=== PATIENT | female | born 1950 | race Caucasian/White ===

== ENCOUNTER → 2017-06-05 | Outpatient (CLI) | payer BC ==
[~2017-06-05] MED LIST: ONDANSETRON 4 MG/2 ML VIAL ONE
[2017-06-05 10:32] LABS: Basophils # (A) 0.1 k/uL (0-0.2); Basophils % (A) 1 %; Eosinophils # (A) 0.2 k/uL (0-0.7); Eosinophils % (A) 2 %; HCT 45.7 % (34.0-46.0); HGB 15.6 gm/dL (11.4-16.0); Lymphocytes # (A) 2.1 k/uL (1.0-4.8); Lymphocytes % (A) 26 %; MCH 30.3 pg (25.0-35.0); MCHC 34.3 g/dL (31.0-37.0); MCV 88.4 fL (80.0-100.0); Mean Platelet Volume 6.7; Monocytes # (A) 0.3 k/uL (0-1.0); Monocytes % (A) 4 %; Neutrophils # (A) 5.5 k/uL (1.3-7.7); Neutrophils % (A) 66 %; Platelet Count 262 k/uL (150-450); RBC 5.17 m/uL (3.80-5.40); RDW 12.6 % (11.5-15.5); WBC 8.3 k/uL (3.8-10.6)
== END | disposition home or self-care (01) ==
LOC: LABPAT 09:16
PROVIDERS: ATTEND Obstetrics & Gynecology
DX: Z01.818 Encounter for other preprocedural examination (principal); Z01.812 Encounter for preprocedural laboratory examination
CPT/HCPCS: 36415; 85025; 93005

== ENCOUNTER 2017-06-07 05:41 | Day surgery (SDC) | payer BC ==
[2017-06-05 15:14] VITALS: BMI 28.3
--- NOTE | 2017-06-06 13:04 | P.HPOB ---
History of Present Illness H&P Date: 06/06/17 Chief Complaint: Postmenopausal bleeding. This patient is a pleasant 67 yr female who has had postmenopausal bleeding for approximately 3 weeks. Pelvis ultrasound showed abnormal endometrial thickening to 2.4 cm and large uterine fibroid. Previously she did have a benign cervical polyp (Dec) and normal pap. She now presents for further evaluation/treatment. Review of Systems Genitourinary: Reports as per HPI, Reports abnormal vaginal bleeding Menstruation: Reports postmenopausal Past Medical History Past Medical History: Hypertension Additional Past Medical History / Comment(s): post menopausal bleeding History of Any Multi-Drug Resistant Organisms: None Reported Past Surgical History: No Surgical Hx Reported Past Anesthesia/Blood Transfusion Reactions: No Reported Reaction Additional Past Anesthesia/Blood Transfusion Reaction / Comment(s): no surgery or anesthesia Past Psychological History: No Psychological Hx Reported Smoking Status: Never smoker Past Alcohol Use History: None Reported Past Drug Use History: None Reported - Past Family History Mother Family Medical History: No Reported History Medications and Allergies Home Medications Medication Instructions Recorded Confirmed Type Enalapril [Vasotec] 10 mg PO BID 01/04/15 06/05/17 History Hydrochlorothiazide [Hydrodiuril] 12.5 mg PO DAILY 01/04/15 06/05/17 History Ergocalciferol (Vitamin D2) 50,000 unit PO Q4D 06/05/17 06/05/17 History [Vitamin D2] Allergies Allergy/AdvReac Type Severity Reaction Status Date / Time Penicillins Allergy Rash/Hives Verified 06/05/17 15:05 Exam - Vital Signs Vital signs: Intake and Output 06/05/17 06/06/17 06/06/17 22:59 06:59 14:59 Other: Weight 82.1 kg - OBG Physical Exam Abdomen: bowel sounds normal, no diffuse tenderness, no bruit present, no guarding noted, no hepatomegaly, no splenomegaly, no mass Vulva: both: normal Vagina: atrophic mucosa Cervix: no lesion, no discharge Uterus: enlarged (Pt has uterine prolapse to the introitus with valsalva) Results Transvaginal ultrasound on May 28 showed abnormal endometrial thickening to 2.4cm and 5.7 cm uterine fibroid. Assessment and Plan Assessment: This is a pleasant 67 yr female with new onset postmenopausal bleeding. Plan is hysteroscopy and D&C for further evaluation and treatment. Jeny and I have discussed this surgery and risks: infection, bleeding, possible uterine perforation. All of the patients questions were answered and a written consent obtained. (1) Postmenopausal bleeding Status: Acute Code(s): N95.0 - POSTMENOPAUSAL BLEEDING SNOMED Code(s): 37329865
[~2017-06-07 05:41] MED LIST changes: -ONDANSETRON 4 MG/2 ML VIAL ONE; +Pre Op ABX Message 1 EACH MISC MISCELLANE ONE
[2017-06-07] MEDS ORDERED: MORPHINE SULFATE 4 MG/0.8 ML SYRINGE (INJ) IV PRN (05:48)
[2017-06-07] MEDS ORDERED: LIDOCAINE 1% 20 ML VIAL (10MG/ML) FOR IV START INTRADERMA PRN (05:48)
[2017-06-07] MEDS ORDERED: SCOPOLAMINE 1.5MG/72HR PATCH TRANSDERM ONE (05:48)
[2017-06-07] MEDS ORDERED: MIDAZOLAM 2 MG/2 ML VIAL IV PRN (05:48)
[2017-06-07] MEDS ORDERED: ONDANSETRON ODT 4 MG TAB PO ONE (05:48)
[2017-06-07] MEDS ORDERED: LACTATED RINGERS 1,000 ML IV SCH (05:48)
[2017-06-07] MEDS ORDERED: DEXAMETHASONE SOD PHOSPHATE 10 MG/ML 1 ML VIAL IV ONE (05:48)
[2017-06-07] MEDS ORDERED: ONDANSETRON 4 MG/2 ML VIAL IVP ONE (06:40)
[2017-06-07] MEDS ORDERED: LIDOCAINE 1% INJ 10MG/ML (20 ML MDV) ONE (06:56)
[2017-06-07] MEDS ORDERED: PROPOFOL 10 MG/ML 20 ML VIAL IV ONE (06:56)
[2017-06-07] MEDS ORDERED: KETOROLAC 30 MG/ML 1 ML VIAL ONE (06:56)
[2017-06-07] MEDS ORDERED: SUCCINYLCHOLINE CHLORIDE 100 MG/5 ML SYR IV ONE (06:56)
[2017-06-07] MEDS ORDERED: PHENYLEPHRINE-0.9% NACL SYG 1 MG/10 ML SYRINGE ONE (06:56)
--- NOTE | 2017-06-07 07:32 | P.OP ---
Date of Procedure: 06/07/17 Preoperative Diagnosis: Post menopausal bleeding Postoperative Diagnosis: Same Procedure(s) Performed: #1: Hysteroscopy. #2: Dilation and curettage Anesthesia: BERNIE Surgeon: Zaid Nunez Estimated Blood Loss (ml): 20 Urine output (ml): 20 Pathology: other (Endometrial polyp and uterine curettings) Condition: stable Disposition: PACU Indications for Procedure: Please see dictated H&P for intimate details of this patient's admission. In brief summary this is a pleasant 67-year-old female whose had approximately 3+ weeks of postmenopausal bleeding. Pelvic ultrasound showed abnormal endometrial thickening to 2.4 cm. She now presents for hysteroscopy D&C for further evaluation and treatment. Patient understands this surgery and risks including risks of infection, bleeding, possible uterine perforation. All the patient's questions are answered written consent is obtained. Operative Findings: This patient had a approximately 4-5 cm elongated endometrial polyp that was protruding from the cervix. She also had multiple intrauterine polyps as well. Description of Procedure: This patient is taken to the operating room where she is laid in the supine position. She subsequently undergoes general endotracheal anesthesia without incident. With an adequate level of anesthesia she's placed in the dorsal lithotomy position. She has a vaginal perineal prep and drape. Examination under anesthesia shows her uterus to be protruding to the introitus consistent with her known prolapse. There is a large polyp that was protruding from the cervix. Place a weighted speculum posterior vagina. Bladder is drained for 20 mL of clear urine. Grabbed the anterior lip of the cervix with an Allis clamp. Using a ring forceps I grabbed the protruding endometrial polyp and in a twisting motion remove this polyp it is approximately 4-5 cm in length and 1-2 cm in width. With this done of the cervix is already dilated but I placed the hysteroscope easily and the uterine cavity. Hysteroscopy is performed and there appeared to be multiple other polyps. The hysteroscope was then removed. Cervix is a very dilated enough to allow a polyp forceps easily uterine cavity and again multiple polyps removed with the polyp forceps and the Ivy forceps. This done a large curette is easily placed in the uterine cavity and a gentle but thorough 4 quadrant curettage is done for more tissue and polyps. None of this tissue appears concerning for carcinoma but there are multiple polyps. This point with adequate sampling done and all the polyps removed as possible procedure is ended. The hemostasis is assured. The Allis clamp and weighted speculum was removed. All counts are correct 3. There are no complications. Patient is awakened from anesthesia and taken recovery room satisfactory condition.
[2017-06-07 07:38] VITALS: TEMP 96.8
[2017-06-07] MEDS ORDERED: LACTATED RINGERS 1,000 ML IV ONE (08:06)
[2017-06-07] MEDS ORDERED: Acetaminophen-Codeine 300-30mg TAB PO ONE (08:30)
[2017-06-07 08:36] VITALS: RESP 16
[2017-06-07 08:46] VITALS: BP 128/78; PULSE 74
== END 2017-06-07 09:05 | disposition home or self-care (01) ==
LOC: OR 05:41
PROVIDERS: ATTEND Obstetrics & Gynecology
DX: N84.0 Polyp of corpus uteri (principal); N84.1 Polyp of cervix uteri; N71.1 Chronic inflammatory disease of uterus; I10 Essential (primary) hypertension; K21.9 Gastro-esophageal reflux disease without esophagitis; Z88.0 Allergy status to penicillin; Z88.2 Allergy status to sulfonamides; Z79.1 Long term (current) use of non-steroidal anti-inflammatories (NSAID); Z79.899 Other long term (current) drug therapy
CPT/HCPCS: 88305; 58558; J2250; J1100; J2405; J2001; J1885; J2370; J0330; J2704

== ENCOUNTER → 2018-09-16 | Outpatient (CLI) | payer MEDICARE, BC ==
--- NOTE | 2018-09-16 11:33 | US ---
EXAMINATION TYPE: US transvaginal DATE OF EXAM: 09/16/2018 COMPARISON: CT dated 01/04/2015 CLINICAL HISTORY: N95.0 Post menopausal bleeding. Pt states endometrial polyp removed 1 year ago, pt on Progesterone TECHNIQUE: Transvaginal (TV). Transvaginal sonographic images of the pelvis were acquired. Pt denie s vaginal bleeding EXAM MEASUREMENTS: Uterus: 14.5 x 7.6 x 8.0 cm Endometrial Stripe: 2.1 cm 1. Uterus: Retroverted Heterogeneous with probable leiomyoma posteriorly in the upper uterine segmen t displacing the endometrium. This measures 5.0 x 4.2 x 5.2 cm. 2. Endometrium: Thickened, heterogeneous 3. Right Ovary: Obscured by overlying bowel gas 4. Left Ovary: Obscured by overlying bowel gas 5. Bilateral Adnexa: wnl 6. Posterior cul-de-sac: wnl IMPRESSION: 1. Grossly abnormal and thickened endometrium measuring up to 2.1 cm. Direct visualization and sampli ng are recommended. 2. Heterogenous uterus containing a 5.2 cm intramural mass with mass effect on the endometrium, most commonly a uterine leiomyoma. 3. Obscuration of the ovaries by bowel gas. The 2 cm cystic lesion in the right ovary is therefore no t seen.
== END | disposition home or self-care (01) ==
LOC: RADUSWWP 10:55
PROVIDERS: ATTEND Obstetrics & Gynecology
DX: N85.9 Noninflammatory disorder of uterus, unspecified (principal); R93.89 Abnormal findings on diagnostic imaging of other specified body structures
CPT/HCPCS: 76830

== ENCOUNTER → 2018-09-25 | Outpatient (CLI) | payer MEDICARE, BC ==
[2018-09-25 10:32] LABS: Basophils # (A) 0.1 k/uL (0-0.2); Basophils % (A) 1 %; Eosinophils # (A) 0.3 k/uL (0-0.7); Eosinophils % (A) 4 %; HCT 44.9 % (34.0-46.0); HGB 14.6 gm/dL (11.4-16.0); Lymphocytes # (A) 2.5 k/uL (1.0-4.8); Lymphocytes % (A) 30 %; MCH 29.4 pg (25.0-35.0); MCHC 32.4 g/dL (31.0-37.0); MCV 90.5 fL (80.0-100.0); Mean Platelet Volume 7.5; Monocytes # (A) 0.4 k/uL (0-1.0); Monocytes % (A) 5 %; Neutrophils # (A) 4.8 k/uL (1.3-7.7); Neutrophils % (A) 59 %; Platelet Count 238 k/uL (150-450); RBC 4.96 m/uL (3.80-5.40); RDW 15.2 % (11.5-15.5)
== END | disposition home or self-care (01) ==
LOC: LABPAT 09:41
PROVIDERS: ATTEND Obstetrics & Gynecology
DX: Z01.812 Encounter for preprocedural laboratory examination (principal); Z01.818 Encounter for other preprocedural examination
CPT/HCPCS: 85025; 93005

== ENCOUNTER 2018-10-11 06:22 | Day surgery (SDC) | payer MEDICARE, BC ==
[2018-10-04 09:57] VITALS: BMI 27.8
--- NOTE | 2018-10-10 12:25 | P.HPOB ---
History of Present Illness H&P Date: 10/10/18 Chief Complaint: Endometrial thickening on ultrasound. This patient is a pleasant 68 yr female whose past history is significant for endometrial hyperplasia without atypia on a polyp found in May 2017. She subsequently went on Provera and repeat endometrial sampling was negative, but now a followup ultrasound shows the endometrium to bew 2.1 cm. She has not had any bleeding. She presents for hysteroscopy and D&C to further evaluate Review of Systems All systems: negative Past Medical History Past Medical History: Hyperlipidemia, Hypertension Additional Past Medical History / Comment(s): History of endometrial polyps History of Any Multi-Drug Resistant Organisms: None Reported Additional Past Surgical History / Comment(s): D&C. Past Anesthesia/Blood Transfusion Reactions: No Reported Reaction Additional Past Anesthesia/Blood Transfusion Reaction / Comment(s): no surgery or anesthesia Past Psychological History: No Psychological Hx Reported Smoking Status: Never smoker Past Alcohol Use History: None Reported Past Drug Use History: None Reported - Past Family History Mother Family Medical History: No Reported History Medications and Allergies Home Medications Medication Instructions Recorded Confirmed Type Enalapril [Vasotec] 40 mg PO QAM 10/04/18 10/04/18 History medroxyPROGESTERone [Provera] 5 mg PO QAM 10/04/18 10/04/18 History Allergies Allergy/AdvReac Type Severity Reaction Status Date / Time Penicillins Allergy Rash/Hives Verified 10/04/18 09:48 Sulfa (Sulfonamide AdvReac Unknown Verified 10/04/18 09:48 Antibiotics) Exam - OBG Physical Exam Abdomen: bowel sounds normal Vulva: both: normal, atrophy Vagina: atrophic mucosa Cervix: no lesion, no discharge Uterus: normal size Results Ultrasound shows endometrial thickening to 2.1 cm. Assessment and Plan Assessment: This is a pleasant 68 yr female with a history of endometrial polyps and hyperplasia, s/p Provera therapy and negative sampling but now with a surveillance ultrasound showing endometrial thickening to 2.1 cm. I suspect a recurrent polyp, but have advised a hysteroscopy and D&C for evaluation. I have discussed this surgery in detail including the risks: infection, bleeding, possible uterine perforation. All of the patients questions have been answered and a written consent obtained. (1) Endometrial thickening on ultrasound Status: Acute Code(s): R93.89 - ABNORMAL FINDINGS ON DX IMAGING OF OTH BODY STRUCTURES SNOMED Code(s): 733410899
[~2018-10-11 06:22] MED LIST changes: +DEXAMETHASONE SOD PHOSPHATE 10 MG/ML 1 ML VIAL IV ONE; +HYDROmorphone 0.5 MG/0.5 ML SYRINGE IVP PRN; +LIDOCAINE 1% 20 ML VIAL (10MG/ML) FOR IV START INTRADERMA PRN; +MIDAZOLAM 2 MG/2 ML VIAL IV PRN; +ONDANSETRON 4 MG/2 ML VIAL IVP ONE; +SCOPOLAMINE 1.5MG/72HR PATCH TRANSDERM ONE
[2018-10-11 06:48] VITALS: RESP 16
[2018-10-11] MEDS: LACTATED RINGERS 1,000 ML IV SCH ×2 (06:48→09:20)
[2018-10-11] MEDS ORDERED: LIDOCAINE 1% INJ 10MG/ML (20 ML MDV) ONE (07:19)
[2018-10-11] MEDS ORDERED: fentaNYL (PF) 50 MCG/ML 2 ML AMP ONE (07:19)
[2018-10-11] MEDS ORDERED: MIDAZOLAM 2 MG/2 ML VIAL ONE (07:19)
[2018-10-11] MEDS ORDERED: PROPOFOL 10 MG/ML 20 ML VIAL IV ONE (07:19)
[2018-10-11 07:51] VITALS: TEMP 97
--- NOTE | 2018-10-11 07:54 | P.OP ---
Date of Procedure: 10/11/18 Preoperative Diagnosis: Abnormal endometrial thickening on ultrasound Postoperative Diagnosis: Same Procedure(s) Performed: #1: Hysteroscopy. #2: Dilation and curettage with polypectomy Anesthesia: MAC Surgeon: Zaid Nunez Estimated Blood Loss (ml): 10 Urine output (ml): 15 Pathology: other (Uterine polyps and uterine curettings) Condition: stable Disposition: PACU Indications for Procedure: Please see dictated H&P for intimate details of this patient's admission. Brief summary this is a pleasant 68-year-old female with known history of endometrial polyps and postmenopausal bleeding in the past. Patient had a D&C done in May of last year which showed some benign endometrial polyps but they were hyperplastic. Patient was placed on Provera and had repeat endometrial sampling which was normal. I did do a surveillance ultrasound however that showed endometrial thickening to 2.1 cm. Patient now presents for further evaluation by hysteroscopy D&C. She and I discussed the surgery and risks: Risks of infection, bleeding, possible uterine perforation. All the patient's questions are answered written consent is obtained. Operative Findings: This patient had several large polyps approximately 1-2 cm in the endometrial cavity. Description of Procedure: This patient is taken to the operating room where she is laid in the supine position. She subsequently undergoes general mask anesthesia without incident. With an adequate level of anesthesia she's placed in dorsal lithotomy position. She has a vaginal perineal prep and drape. Examination under anesthesia shows uterine prolapse to the introitus. The anterior lip of the cervix is gravid and Allis clamp and weighted speculum placed posteriorly. I drain the bladder for 15 mL of clear urine. Uterus is sounded to 9 cm. Gentle dilation is done of the endocervix to allow the hysteroscope into the uterine cavity. Using saline solution the uterine cavity is completely visualized and there are 2 large benign appearing polyps. Hysteroscope was then removed. Using a polyp forceps are remove these polyps. I did do a vigorous and thorough 4 quadrant curettage. All this tissue sent off to pathology. There is minimal bleeding. This point the procedure is ended. Allis clamp and weighted speculum removed. All counts are correct 3. There are no complications. Patient is awakened from anesthesia and taken recovery room in satisfactory condition.
[2018-10-11] MEDS ORDERED: KETOROLAC 30 MG/ML 1 ML VIAL IVP ONE (08:25)
[2018-10-11] MEDS ORDERED: HYDROmorphone 1 MG/ML 1 ML SYRINGE IVP ONE (08:27)
[2018-10-11] MEDS ORDERED: ENALAPRILAT 1.25 MG/ML 1 ML VIAL IVP ONE (09:20)
[2018-10-11 09:40] VITALS: BP 152/88; PULSE 78
== END 2018-10-11 09:50 | disposition home or self-care (01) ==
LOC: OR 06:22
PROVIDERS: ATTEND Obstetrics & Gynecology
DX: N84.0 Polyp of corpus uteri (principal); N84.1 Polyp of cervix uteri; N95.0 Postmenopausal bleeding; I10 Essential (primary) hypertension; E78.5 Hyperlipidemia, unspecified; K21.9 Gastro-esophageal reflux disease without esophagitis; Z88.0 Allergy status to penicillin; Z88.2 Allergy status to sulfonamides; Z79.890 Hormone replacement therapy; Z79.899 Other long term (current) drug therapy; Z87.42 Personal history of other diseases of the female genital tract; Z98.890 Other specified postprocedural states
CPT/HCPCS: 58558; 88305; J2250; J1100; J2405; J2001; J3010; J1885; J1170; J2704

== ENCOUNTER → 2018-11-21 | Outpatient (CLI) | payer MEDICARE, BC ==
[2018-11-21 17:45] LABS: African American GFR (CKD) 87.8 (60.0-200.0); Albumin 4.4 g/dL (3.80-4.90); Albumin/Globulin Ratio 2.59 (1.60-3.17); Anion Gap 11.9 mmol/L (4.00-12.00); BUN/Creat Ratio 17.5 Ratio (12.00-20.00); Calcium 9.2 mg/dL (8.7-10.3); Carbon Dioxide 22.1 mmol/L (21.6-31.8); Chol/HDL Ratio 5.73; Globulin 1.7 g/dL (1.6-3.3); LDL Cholesterol,Calculated 148.8 mg/dL (0.0-131.0); Total Bilirubin 0.8 mg/dL (0.2-1.2); Total Protein 6.1 g/dL (6.2-8.2); VLDL Calculation 40.2 mg/dL (5.00-40.00)
== END | disposition home or self-care (01) ==
LOC: LABWHC1 09:45
DX: I10 Essential (primary) hypertension (principal); E78.5 Hyperlipidemia, unspecified; E55.9 Vitamin D deficiency, unspecified
CPT/HCPCS: 36415; 80053; 80061; 82306; 84443

== ENCOUNTER → 2019-11-28 | Outpatient (CLI) | payer MEDICARE, BC ==
--- NOTE | 2019-11-28 17:02 | US ---
EXAMINATION TYPE: US carotid duplex BILAT DATE OF EXAM: 11/28/2019 COMPARISON: NONE CLINICAL HISTORY: R09.89 Carotid bruit. EXAM MEASUREMENTS: RIGHT: Peak Systolic Velocity (PSV) cm/sec ----- Right CCA: 80.9 ----- Right ICA: 101.8 ----- Right ECA: 133.4 ICA/CCA ratio: 1.3 RIGHT: End Diastole cm/sec ----- Right CCA: 28.1 ----- Right ICA: 32.5 ----- Right ECA: 25.2 LEFT: Peak Systolic Velocity (PSV) cm/sec ----- Left CCA: 101.8 ----- Left ICA: 94.1 ----- Left ECA: 82.0 ICA/CCA ratio: 0.9 LEFT: End Diastole cm/sec ----- Left CCA: 34.7 ----- Left ICA: 36.9 ----- Left ECA: 16.0 VERTEBRALS (direction of flow): Right Vertebral: Antegrade Left Vertebral: Antegrade Rhythm: Normal No significant stenosis seen. Soft plaque noted at bilateral bulbs. IMPRESSION: 1. Atherosclerotic plaque with no significant hemodynamic stenosis. Criteria for Assigning % of Stenosis / Diameter reduction (Estimation based on the indirect measurements of the internal carotid artery velocities (ICA PSV). 1. Normal (no stenosis)=ICA PSV < 125 cm/s: ratio < 2.0: ICA EDV<40 cm/s. 2. Less than 50% stenosis=ICA PSV < 125 cm/s: ratio < 2.0: ICA EDV<40 cm/s. 3. 50 to 69% stenosis=ICA PSV of 125 to 230 cm/s: ration 2.0 ? 4.0: ICA EDV 40-100 cm/s. 4. Greater than 70% stenosis to near occlusion= ICA PSV > 230 cm/s: ratio > 4.0: ICA EDV > 100 cm/s. 5. Near occlusion= ICA PSV velocities may be low or undetectable: variable ratio and ICA EDV. 6. Total occlusion=unable to detect flow.
== END | disposition home or self-care (01) ==
LOC: RADUSWWP 16:19
PROVIDERS: ATTEND Family Medicine
DX: I65.23 Occlusion and stenosis of bilateral carotid arteries (principal)
CPT/HCPCS: 93880